=== PATIENT | female | born 1935 | race Caucasian/White ===

== ENCOUNTER → 2017-06-19 | Outpatient (CLI) | payer OTHER, MEDICARE ==
[~2017-06-19] MED LIST: ALLEGRA180 MG PO; APAP500 PO; ARTIFICIAL TEAR15 M1 OP; B-100 COMPLEX1 EAC1 PO; BACLOFEN; CALCIUM 500 WI1 EAC4 PO; CALCIUM 500+D1 EAC3 PO; COLACE100 MG PO; DETROL LA4 MG PO; FLONASE NS; FLUOXETINE HCL40 MG PO; FUROSEMIDE 20 M20 MG OR; K-DUR 20 MEQ T20 MEQ PO; MOM PO; MULTIVITAMINS PO; PROZAC PO; SINGULAIR 10 MG10 M1 PO; TIZANIDINE PO; TIZANIDINE4 MG/1 TA1 PO; ULTRAM PO; VITCB500GO PO; ZANAFLEX4 M1 PO; [UNRECOGNIZED DRUG - OTHER]
== END ==
LOC: HYPER 07:07
DX: L89.513 Pressure ulcer of right ankle, stage 3 (principal); L89.313 Pressure ulcer of right buttock, stage 3; L89.893 Pressure ulcer of other site, stage 3; L89.890 Pressure ulcer of other site, unstageable; I73.9 Peripheral vascular disease, unspecified; G81.10 Spastic hemiplegia affecting unspecified side; M81.0 Age-related osteoporosis without current pathological fracture; Z87.891 Personal history of nicotine dependence; Z72.89 Other problems related to lifestyle

== ENCOUNTER 2017-07-10 12:09 | Inpatient (IN) | payer OTHER, MEDICARE ==
[~2017-07-10] VITALS: Ht 170.2 cm; Wt 77.1 kg
--- NOTE | ~2017-07-10 | S ---
[facility] [place] [address] SURGICAL PATH RPT PROCEDURE Name: MARLEEN MCGEE Room #: 417-I ADM IN M.R.#: [id number] Admission: 07/10/17 Date of : 39 Discharge: Report #: [id number] Path Case #: [id number] PATHOLOGY REPORT COLLECTION DATE: 07/11/2017 RECEIVED DATE: 07/11/2017 SUBMITTING PHYS: Dr. Toney Swartz OTHER PHYS: Dr. Clarence Douglas SPECIMEN(S) RECEIVED: A.Right ischial tuberosity decubitus ulcer B.Right lateral maleolus pressure area * * * * * * * * * * * * FINAL DIAGNOSIS: A. Right ischial tuberosity decubitus ulcer: - Necrotic fibroadipose tissue with mixed inflammation and focal granulation tissue formation. - Skin with mild dermal chronic inflammation and focal hyperkeratosis. B. Right lateral maleolus pressure area: - Necrotic soft tissue with ulcer, granulation tissue formation, and mixed inflammation. - Skin with mild dermal chronic inflammation. PATHOLOGIST: Rex Coley M.D. REPORT ELECTRONICALLY SIGNED BY: Rex Coley M.D. DATE/TIME: 07/15/2017 10:56 * * * * * * * * * * * * GROSS PATHOLOGY: A. The specimen is received in formalin, labeled "Alma Delia Mcgee, right ischial tuberosity decubitus ulcer," and consists of 3 segments of eduardo-ravi and ulcerated skin with underlying soft tissue measuring between 4.2 x 3.5 x 2.8 cm and 3.3 x 2.3 x 1.4 cm. Coating Machine Operator sections are submitted in cassettes A1-A2. B. The specimen is received in formalin, labeled "Alma Delia Mcgee, right lateral malleolus pressure area," and consists of an ulcerated segment of brown-ravi skin measuring 2.5 x 2.4 x 0.5 cm. Coating Machine Operator sections are submitted in cassette B1. (SDY; 07/12/2017) CLINICAL HISTORY: Decubitus ulcer [facility] [address] [place] [address] SURGICAL PATH RPT PROCEDURE Name: MARLEEN MCGEE [facility] Room #: 417-I ADM IN M.R.#: [id number] Admission: 07/10/17 Date of : 39 Discharge: Report #: [id number] Path Case #: [id number] INITIAL CPT CODE(S): A; 66088 B; 58167 Professional services performed by [facility] at [address] , [place] [address] Technical services performed by [facility] at [address] [place] [address], [facility] [address] [address]. [facility] [address] [address] PHONE: [phone] DIRECTOR: Arcadio Gilbert M.D. * * * END OF REPORT * * *
--- NOTE | ~2017-07-10 | O ---
[facility] [place] [address] OPERATIVE REPORT Name: MARLEEN MCGEE Room #: 417-I ADM IN M.R.#: [id number] Admission: 07/10/17 Attend Phys: Roque Douglas MD Discharge: Date of : 37 Report #: [id number] THIS REPORT FOR: //name// CC: Clarence Douglas MD DATE OF SERVICE: 07/11/2017 SURGEON: Toney Swartz M.D. TELEVISION PICTURE TUBE REBUILDER: None. POSTOPERATIVE DIAGNOSES: 1. Unstageable right ischial tuberosity decubitus ulcer. 2. Right lateral malleolus decubitus ulcer. 3. Multiple scleroses. POSTOPERATIVE DIAGNOSES: 1. Stage 3 right ischial tuberosity decubitus ulcer. 2. Stage 3 right lateral malleolus decubitus ulcer. 3. Multiple scleroses. PROCEDURES: 1. Excisional debridement of skin, subcutaneous tissue and muscle of the right ischial tuberosity decubitus ulcer (starting measurements 2.5 x 2.5 cm and the ending measurement 5.5 x 6.5 cm). 2. Excisional debridement of skin and subcutaneous tissue of the right lateral malleolus decubitus ulcer (starting measurement 2.0 x 2.0 cm and ending measurement 3.5 cm x 3.3 cm). 3. Misonix ultrasonic debridement of right ischial tuberosity and right lateral malleolus decubitus ulcers. 4. Application of MIRODERM extracellular matrix to decubitus ulcer wound beds. ANESTHESIA: Monitored anesthetic care and local anesthetic. ESTIMATED BLOOD LOSS: 10 mL. SPECIMEN: Right ischial tuberosity skin, subcutaneous tissue, and muscle and right lateral malleolus skin and subcutaneous tissue. COMPLICATIONS: None appreciated. INDICATIONS FOR PROCEDURE: This is an 82-year-old female patient with a history of multiple scleroses who is essentially immobile. She had been seen [facility] by Dr. Vaughn Swan for decubitus ulcers. Attempted to [address] [address] OPERATIVE REPORT Name: MARLEEN MCGEE [facility] Room #: 417-I [facility] IN [facility].#: [id number] Admission: 07/10/17 Attend Phys: Roque Douglas MD Discharge: Date of : 37 Report #: [id number] debride her at the bedside; however, she had hemorrhage from a very small incision. In addition to this, there was concern for infection of both areas. Debridement of her decubitus ulcers is indicated. DESCRIPTION OF PROCEDURE IN DETAIL: After the risks, benefits and expectations of the operation were discussed in detail with the patient, informed consent was obtained. The patient was identified in the preoperative holding area. She has been receiving scheduled IV antibiotics. She was taken to the operating room and she was placed in the supine position. The SCDs were placed on the patient's left lower extremity and pneumatic compression was initiated. The patient was given sedation and monitored by Anesthesia. She was placed in the left lateral decubitus position with the right side up. Debridement of the right ischial tuberosity decubitus ulcer was undertaken first. The ischial tuberosity was prepped and draped in the standard sterile fashion. Local anesthetic was infiltrated into the skin and subcutaneous tissue around the ulcerated area. A sharp #10 blade scalpel was then used to make the incision. The underlying tissue was excised sharply down to healthy bleeding tissue. Dissection was carried more cephalad to get bleeding tissue and this required excision of more skin and subcutaneous tissue. Skin, subcutaneous tissue and muscle were removed with no removal of bone as there was no evidence for bony involvement. Cultures were taken to be sent for aerobes, anaerobes and fungus. The wound was then copiously irrigated. Areas of bleeding were made hemostatic with electrocautery. The Misonix ultrasonic debridement device was then used to mechanically and ultrasonically debride the wound bed. Bleeding points were again made hemostatic with electrocautery. After ensuring final hemostasis, the MIRODERM extracellular matrix was cut to size and approximated to the wound bed with simple interrupted 3-0 Vicryl sutures. There was good coverage of the wound. Excisional debridement of the right lateral malleolus was undertaken next in a similar fashion. Local anesthetic was infiltrated into the skin and subcutaneous tissue and a sharp #10 blade scalpel was used to make the incision. The wound bed was debrided sharply down to healthy bleeding tissue. There was no bony involvement. The excised tissue included skin and subcutaneous tissue as there was no overlying muscle in this area. The cultures were then taken to be sent for aerobes, anaerobes and fungus. The wound bed was made hemostatic with electrocautery. The ulcerative area was then irrigated with normal saline. The Misonix ultrasonic device was then used to mechanically debride the right lateral malleolus wound bed. Bleeding points were again made hemostatic with electrocautery. After ensuring final hemostasis, the MIRODERM extracellular matrix was cut to size and approximated to the wound bed with simple interrupted 3-0 Vicryl sutures. Each wound bed was then dressed with Adaptic, 4 x 4's and tape. The patient tolerated the procedure well. She was awakened and returned [address] [address] OPERATIVE REPORT Name: MARLEEN MCGEE Room #: 417-I ADM IN M.R.#: [id number] Admission: 07/10/17 Attend Phys: Roque Douglas MD Discharge: Date of : 37 Report #: [id number] to the supine position. She was taken to the recovery room in stable condition with no apparent intraoperative complications. <ELECTRONICALLY SIGNED> By: Toney Swartz MD, FACS 07/15/17 0658 [id number] 0147 Toney Swartz MD, FACS /nt
--- NOTE | ~2017-07-10 | HC ---
[facility] [place] [address] CONSULTATION Name: MARLEEN MCGEE Room #: 417-I ADM IN M.R.#: [id number] Admission: 07/10/17 Attend Phys: Roque Douglas MD Discharge: Date of : 37 Report #: [id number] THIS REPORT FOR: //name// CC: Clarence Douglas REASON FOR CONSULTATION: I was asked to evaluate concerning pressure wound infection. HISTORY OF PRESENT ILLNESS: The patient is an 82-year-old with underlying MS who presents with right ischial pressure wound infection, right lateral malleolus pressure wound infection and cellulitis to her right lower extremity. She also has multiple allergies recorded. She was a poor historian. She was seen in the [facility] with worsening erythema and enlarging ulcers involving these areas; therefore, was hospitalized for further treatment and debridement. She is just back from surgical debridement this afternoon. No fever, chills or sweats. Denies any cough or sputum production. She is very limited by her MS disease. ALLERGIES: AMOXICILLIN, SULFA, CEFTRIAXONE, CIPROFLOXACIN, VANCOMYCIN, MORPHINE AND ADHESIVE TAPE. SHE COULD NOT TELL ME THE REACTIONS OTHER THAN SHE HAD RASH WITH PENICILLIN. REPORT IN THE RECORD IS OF HIVES. SHE DENIED ANY RESPIRATORY COMPROMISE WITH THE DRUGS. MEDICATIONS: As noted on her MAR now including meropenem, which she seems to be tolerating. PAST MEDICAL HISTORY: MS with left abdominal wall infusion port, neurogenic bladder, depression, foot fracture, osteoarthritis and venous insufficiency. FAMILY HISTORY: Noncontributory. SOCIAL HISTORY: Nonsmoker and no significant alcohol intake. REVIEW OF SYSTEMS: As noted above. PHYSICAL EXAMINATION: VITAL SIGNS: Afebrile and hemodynamically stable. CHEST: Clear. HEART: Regular. ABDOMEN: Soft and nontender. Infusion pocket, left abdomen was unremarkable. EXTREMITIES: Right ischial and foot wounds were dressed and dry. She did have associated erythema involving her right lower extremity. Generalized weakness. LABORATORY STUDIES: Hemoglobin 11.6, WBC 6.7 and platelet count was 286,000. Sodium 140, potassium 3.9, bicarbonate 28 and creatinine 0.5. Blood cultures are pending. Wound cultures are pending. Arterial studies to the [facility] [address] [place] [address] CONSULTATION Name: MARLEEN MCGEE Room #: 417-I ADM IN [facility].#: [id number] Admission: 07/10/17 Attend Phys: Roque Douglas MD Discharge: Date of : 37 Report #: [id number] extremities are pending. IMPRESSION: An 82-year-old with MULTIPLE ALLERGIES INCLUDING BETA LACTAMS, VANCOMYCIN, SULFA AND CIPROFLOXACIN with infected pressure wounds involving her ischium and lateral malleolus on the right. I am awaiting operative report regarding possibility of underlying osteomyelitis. I would recommend broad-antibiotic coverage with meropenem as you have previously ordered. We will await operative note. Check arterial studies and obtain sedimentation rate. Continue wound care and we will adjust her antibiotics accordingly. Duration of her antibiotics will depend upon extent of her infection. <ELECTRONICALLY SIGNED> By: Kevin Saravia MD 07/12/17 1229 2032 0455 Kevin Saravia MD /nt
--- NOTE | ~2017-07-10 | HC ---
[facility] [place] [address] CONSULTATION Name: MARLEEN MCGEE Room #: 417-I ADM IN M.R.#: [id number] Admission: 07/10/17 Attend Phys: Roque Douglas MD Discharge: Date of : 37 Report #: [id number] THIS REPORT FOR: //name// CC: ARPAN Douglas DATE OF SERVICE: 07/11/2017 REASON FOR CONSULTATION: Decubitus ulcers. HISTORY OF PRESENT ILLNESS: This is an 82-year-old female patient with a history of multiple sclerosis who had been seen at the wound care clinic for decubitus ulcers. Bedside debridement was attempted; however, she had hemorrhage from a small incision. In addition to concern for infection of both areas, she has been admitted for further treatment and I have been asked to see her for excisional debridement. She denies fever or chills and reports pain with both areas. PAST MEDICAL HISTORY: Significant for multiple sclerosing, osteoarthritis, neurogenic bladder, depression, bilateral lower extremity venous insufficiency. PAST SURGICAL HISTORY: Right foot surgery. ALLERGIES: Multiple and include AMOXICILLIN, MORPHINE, PENICILLIN, SULFA DRUGS, VANCOMYCIN, CIPRO, CEFTRIAXONE and ADHESIVE TAPE. MEDICATIONS: At the [facility] include Detrol, Prozac, Lasix, K-Dur, Colace, tizanidine, milk of magnesia, Flonase, Dianna, Tylenol, multivitamins, baclofen, calcium and other p.r.n. medications. She is receiving meropenem here at the hospital for antibiosis. Please see the chart for dosing details. FAMILY HISTORY: Reviewed and noncontributory to this hospitalization. SOCIAL HISTORY: The [facility] is a [facility] resident. She does not use tobacco, alcohol or illicit drugs. REVIEW OF SYSTEMS: As per history of present illness. In addition: GENERAL: The patient denies fever or chills. Denies unintentional weight loss. HEENT: Denies changes in taste, vision, hearing, or smell. RESPIRATORY: Denies shortness of breath, COPD or asthma. CARDIOVASCULAR: Denies chest pain or palpitations. GASTROINTESTINAL: Denies abdominal pain, nausea or vomiting. GENITOURINARY: Denies dysuria, has a history of neurogenic bladder. [address] [address] CONSULTATION Name: MARLEEN MCGEE [facility] Room #: 417-I [facility] IN M.R.#: [id number] Admission: 07/10/17 Attend Phys: Roque Douglas MD Discharge: Date of : 37 Report #: [id number] NEUROLOGIC: Denies headaches, numbness or tingling. Has multiple sclerosis. PSYCHIATRIC: History of depression. Denies anxiety or suicidal ideations. SKIN AND INTEGUMENTARY: As per history of present illness. HEMATOLOGIC: Denies easy bleeding, bruising or anemia. ENDOCRINE: Denies polydipsia, polyuria, heat or cold intolerance. All other review of systems is negative. PHYSICAL EXAMINATION: VITAL SIGNS: Temperature 36.5 degrees Celsius, blood pressure 105/63, pulse 65, respirations 18. GENERAL: This is an 82-year-old female patient in no acute distress. She verbalizes, but is a poor historian. HEENT: Atraumatic, normocephalic. She has moist mucosal membranes, no scleral icterus. NECK: Supple, no appreciable lymphadenopathy. Trachea is midline. CHEST: Clear bilaterally. CARDIOVASCULAR: Regular rate and rhythm. ABDOMEN: Soft, nontender and nondistended. GENITOURINARY: Normal external female genitalia. EXTREMITIES: Her right lateral malleolus is dressed. A 1/4 to 1/2 dollar sized ulceration is present on the lateral malleolus with mild surrounding erythema and no significant drainage. Fibrinous exdate is present covering the wound with small areas of necrosis. RECTAL: Deferred; however, a right ischial decubitus ulcer is present, it is approximately 6 cm wide by 3-1/2 to 4 cm along with mild surrounding erythema and no significant edema, no significant drainage and fibrinous exudate. She has mild tenderness to palpation. NEUROLOGIC: Multiple sclerosis changes. PSYCHIATRIC: Flat affect. SKIN AND INTEGUMENTARY: See above. LABORATORY DATA: CBC from this morning shows a white blood cell count of 6.7, hemoglobin 11.6, hematocrit 33.9 and platelets 286. Electrolytes show sodium of 140, potassium 3.9, chloride 105, CO2 28, BUN 13, creatinine 0.5 and glucose 119. IMPRESSION AND PLAN: This is an 82-year-old female patient with a history of multiple sclerosis who favors her right side when lying supine. She has developed unstageable decubitus ulcers. We discussed the pathophysiology and natural history of these as well as treatment alternatives and surgical options. The patient would benefit from excisional debridement of both areas. I would plan to ultrasonically/mechanically debride as well and the patient was informed that cultures will be taken and all tissue will be sent for pathology. We discussed the risks, benefits, and expectations of the operation. She expressed understanding and wishes to proceed. She will be taken to the operating room at the next earliest availability for excisional debridement. [address] [address] CONSULTATION Name: MARLEEN MCGEE Room #: 417-I ADM IN M.R.#: [id number] Admission: 07/10/17 Attend Phys: Roque Douglas MD Discharge: Date of : 37 Report #: [id number] I sincerely appreciate the opportunity to participate in the care of this patient and will leave further recommendations and orders in the electronic medical record as appropriate. <ELECTRONICALLY SIGNED> By: Toney Swartz MD, FACS 07/12/17 0740 0824 0902 Toney Swartz MD, FACS /nt
[2017-07-10 15:16] VITALS: BP 131/87
[2017-07-10 16:33] LABS: HEMATOCRIT 34.2 % (37.0-47.0); HEMOGLOBIN 11.5 gm/dL (12.0-15.0); MCH 31.3 pg (26.0-34.0); MCHC 33.5 g/dL (28.0-37.0); MCV 93.4 fL (80.0-100.0); RBC 3.66 mil/uL (4.20-5.00); RDW 13.4 % (10.5-14.5); WBC 6.8 thou/uL (4.0-11.0)
[2017-07-10 16:42] LABS: CALCIUM 9.1 mg/dL (8.5-10.1); CREATININE 0.6 mg/dL (0.6-1.0); POTASSIUM 3.7 mmol/L (3.5-5.1)
[2017-07-10 19:16] VITALS: BP 132/63
[2017-07-10 19:20] VITALS: BP 98/57
[2017-07-11 03:59] VITALS: BP 105/63
[2017-07-11 06:31] LABS: HEMATOCRIT 33.9 % (37.0-47.0); HEMOGLOBIN 11.6 gm/dL (12.0-15.0); MCH 31.9 pg (26.0-34.0); MCHC 34.1 g/dL (28.0-37.0); MCV 93.4 fL (80.0-100.0); RBC 3.63 mil/uL (4.20-5.00); RDW 13.2 % (10.5-14.5); WBC 6.7 thou/uL (4.0-11.0)
[2017-07-11 06:47] LABS: CALCIUM 8.9 mg/dL (8.5-10.1); CREATININE 0.5 mg/dL (0.6-1.0); POTASSIUM 3.9 mmol/L (3.5-5.1)
[2017-07-11 08:00] VITALS: BP 150/76
[2017-07-11 12:32] VITALS: BP 138/74
[2017-07-11 15:52] VITALS: BP 124/69
[2017-07-11 20:55] VITALS: BP 113/50
[2017-07-12 04:06] VITALS: BP 140/63
[2017-07-12 06:18] LABS: HEMATOCRIT 31.6 % (37.0-47.0); HEMOGLOBIN 10.6 gm/dL (12.0-15.0); MCH 31.7 pg (26.0-34.0); MCHC 33.6 g/dL (28.0-37.0); MCV 94.4 fL (80.0-100.0); RBC 3.34 mil/uL (4.20-5.00); WBC 6.6 thou/uL (4.0-11.0)
[2017-07-12 06:30] LABS: CALCIUM 8.7 mg/dL (8.5-10.1); CREATININE 0.5 mg/dL (0.6-1.0); POTASSIUM 3.8 mmol/L (3.5-5.1)
[2017-07-12 07:11] VITALS: BP 130/64
[2017-07-12 09:29] VITALS: BP 118/49
[2017-07-12 16:45] VITALS: BP 137/65
[2017-07-12 19:29] VITALS: BP 118/49
[2017-07-13 02:55] VITALS: BP 101/41
[2017-07-13 06:01] LABS: HEMATOCRIT 30.5 % (37.0-47.0); HEMOGLOBIN 10.5 gm/dL (12.0-15.0); MCH 31.7 pg (26.0-34.0); MCHC 34.3 g/dL (28.0-37.0); MCV 92.4 fL (80.0-100.0); RBC 3.3 mil/uL (4.20-5.00); RDW 13.2 % (10.5-14.5); WBC 7.1 thou/uL (4.0-11.0)
[2017-07-13 06:08] LABS: CALCIUM 8.4 mg/dL (8.5-10.1); CREATININE 0.4 mg/dL (0.6-1.0); POTASSIUM 3.7 mmol/L (3.5-5.1)
[2017-07-13 07:30] VITALS: BP 131/63
[2017-07-13 15:56] VITALS: BP 122/66
[2017-07-13 19:49] VITALS: BP 108/54
[2017-07-14 03:54] VITALS: BP 105/38
[2017-07-14 06:28] LABS: HEMATOCRIT 32.1 % (37.0-47.0); MCH 31.8 pg (26.0-34.0); MCHC 34.3 g/dL (28.0-37.0); MCV 92.6 fL (80.0-100.0); RBC 3.47 mil/uL (4.20-5.00); RDW 13.2 % (10.5-14.5); WBC 7.3 thou/uL (4.0-11.0)
[2017-07-14 06:39] LABS: ALBUMIN 2.1 g/dL (3.4-5.0); CALCIUM 8.7 mg/dL (8.5-10.1); CREATININE 0.5 mg/dL (0.6-1.0); POTASSIUM 3.6 mmol/L (3.5-5.1); TOTAL BILIRUBIN 0.3 mg/dL (<0.1-1.0); TOTAL PROTEIN 6.1 g/dL (6.4-8.2)
[2017-07-14 07:08] VITALS: BP 123/44
[2017-07-14 14:23] VITALS: BP 97/44
[2017-07-14 21:30] VITALS: BP 131/66
[2017-07-15 04:30] VITALS: BP 94/62
[2017-07-15 08:00] VITALS: BP 133/55
[2017-07-15 15:10] VITALS: BP 103/43
[2017-07-15] MEDS ORDERED: INVANZ 1GM/NS 101 GM IV (17:10)
== END 2017-07-15 17:24 | DRG 570 ==
LOC: 4E 12:09
PROVIDERS: Hospitalist
DX: L89.893 Pressure ulcer of other site, stage 3 (principal); E43 Unspecified severe protein-calorie malnutrition; L03.115 Cellulitis of right lower limb; L89.513 Pressure ulcer of right ankle, stage 3; M19.90 Unspecified osteoarthritis, unspecified site; F32.9 Major depressive disorder, single episode, unspecified; G35 Multiple sclerosis; D64.9 Anemia, unspecified; Z88.1 Allergy status to other antibiotic agents; Z88.5 Allergy status to narcotic agent; Z88.0 Allergy status to penicillin; Z88.2 Allergy status to sulfonamides; Z88.8 Allergy status to other drugs, medicaments and biological substances; Z87.81 Personal history of (healed) traumatic fracture; Z68.26 Body mass index [BMI] 26.0-26.9, adult
CPT/HCPCS: 27000; 50010; 50101; 50386; 50403; 53353; 53354; 54109; 56524; 62110; 62900; 64031; 70005

== ENCOUNTER → 2017-07-10 | Outpatient (CLI) | payer OTHER, MEDICARE | LOC: HYPER 06:59 | DX: L89.313 Pressure ulcer of right buttock, stage 3 (principal); L89.513 Pressure ulcer of right ankle, stage 3; L89.893 Pressure ulcer of other site, stage 3; L89.890 Pressure ulcer of other site, unstageable; I73.9 Peripheral vascular disease, unspecified; G81.10 Spastic hemiplegia affecting unspecified side; G35 Multiple sclerosis; R60.9 Edema, unspecified; Z87.891 Personal history of nicotine dependence; Z72.89 Other problems related to lifestyle ==

== ENCOUNTER 2017-08-28 11:15 | Inpatient (IN) | payer OTHER, MEDICARE ==
[~2017-08-28] VITALS: Ht 170.2 cm; Wt 66.2 kg
--- NOTE | ~2017-08-28 | HC ---
[facility] [place] [address] CONSULTATION Name: MARLEEN MCGEE Room #: 448-P ADM IN M.R.#: [id number] Admission: 08/28/17 Attend Phys: Sanya Mcneil MD Discharge: Date of : 37 Report #: [id number] THIS REPORT FOR: //name// CC: Sanya Patel DATE OF SERVICE: 08/29/2017 WOUND CARE CONSULTATION PERSONAL PHYSICIAN: Clarence Chung MD CHIEF COMPLAINT: Right ischial decubitus ulcer as well as bilateral ankle ulcers. HISTORY OF PRESENT ILLNESS: This is an 82-year-old white female with a history of multiple sclerosis and is wheelchair rebound who is being followed in the wound clinic for the past several weeks and most recently by my PA at her nursing facility at [facility]. The wound has deteriorated now into a stage 4 right ischial decubitus ulcer and was infected this past week with morganella, proteus and E. coli. Given the multiple bacteria, Dr. Mueller agrees to see the patient in the senior's clinic yesterday. At that time, it was felt that given her multiple comorbidities and the need for a PICC line most likely as well as workup for underlying osteomyelitis, the patient was admitted to the hospital and I have been asked to follow her for the decubitus ulceration. The patient does complain of mild pain in that area. The patient had been recently started on ertapenem 1 gram IV daily approximately 4 days ago while she was at the nursing facility. This was based on her culture as above. CURRENT MEDICATIONS: Included the IV ertapenem as well as multiple other medications of which I have reviewed. PAST MEDICAL HISTORY: Multiple sclerosis with an abdominal wall, baclofen pump, neurogenic bladder, depression, the stage 4 decubitus ulcer in the right ischial region, multiple decubitus ulcers on the bilateral heels and then history of malnutrition. DRUG ALLERGIES: Multiple, I reviewed the patient's list. SOCIAL HISTORY: The patient resides at a snf. FAMILY HISTORY: Not pertinent to current medical condition. [facility] [address] [place] [address] CONSULTATION Name: MARLEEN MCGEE Room #: 448-P [facility] IN M.R.#: [id number] Admission: 08/28/17 Attend Phys: Sanya Mcneil MD Discharge: Date of : 37 Report #: [id number] REVIEW OF SYSTEMS: CONSTITUTIONAL: The patient denies actual fevers or chills prior to this hospitalization. NEUROLOGIC: The patient states she has significant debility and weakness overall, but no isolated weakness in her arms or legs except for progressive weakness in her lower extremity from her MS. EYES: No complaints. ENT: No complaints. RESPIRATORY: The patient denies shortness of breath, cough, wheezes. GASTROINTESTINAL: The patient has decreased appetite, but no nausea, vomiting or abdominal pain. GENITOURINARY: The patient denies urgency or frequency. PHYSICAL EXAMINATION: VITAL SIGNS: Temperature 37.2, pulse 74, respiration 18 and BP 120/61. GENERAL: This is awake and chronically ill appearing white female who is in ccyr-hm-kidljyvu distress secondary to pain. HEENT: Normocephalic and atraumatic. Mucous membranes are somewhat dry. Pupils are round. Sclerae white. NECK: Without JVD, masses or rigidity. BACK: Nontender. LUNGS: Clear. HEART: Regular with 2/6 systolic ejection murmur. ABDOMEN: Soft and nontender. EXTREMITIES: The patient has movement of the upper extremities, which is fairly free and very limited movement of lower extremities with some contractures. Evaluation of right ischial tuberosity reveals a stage 4 decubitus ulcer, which is a mix of slough and granulation tissue. There is palpable bone on the base. On the right lateral ankle, there is a stage 3 decubitus ulcer, with a mixture of slough and granulation tissue and on the right medial ankle there is an unstageable decubitus ulcer, which is 100% dry eschar and there is also an unstageable decubitus ulcer on the left lateral ankle, which is 100% eschar. NEUROLOGIC: Cranial nerves 2-12 are grossly intact. Motor and sensory are grossly intact. LABORATORY VALUES: White count 10.5 and hemoglobin 11.5. Sed rate 102. BUN 8, creatinine 0.5, C-reactive protein is 53, albumin 2.1 and prealbumin 15.1. WOUND CARE COURSE: I spoke at length with the patient. We will have a dietary consult to be performed for nutritional guidance. I think the patient also would do well with a PEG tube to enhance her nutritional protein supplementation as well as for healing. We will put a consult in for Dr. Ferguson to see the patient regarding surgical debridement of the decubitus ulcer as well as PEG tube placement for which the patient said she is agreeable to. We will put the patient on a low air loss mattress, have her turned every 2 hours. The ankle ulcers will be cleaned with saline daily and covered with Optifoam Ag, change [address] [address] CONSULTATION Name: MARLEEN MCGEE Room #: 448-P ADM IN M.R.#: [id number] Admission: 08/28/17 Attend Phys: Sanya Mcneil MD Discharge: Date of : 37 Report #: [id number] this Saturday, Saturday and Saturday. On the right ischial tuberosity, we will use 50% Dakin solution, cover with ABD and secure with tape, change this twice daily and we will continue to follow the patient. I will review this with the hospitalist as well as with the casework supervisor about starting discharge planning for either a SNF unit or possibly an LTAC, planning on whether the patient is going to need long-term IV antibiotics. IMPRESSION: 1. Stage 4 right ischial decubitus ulcer. 2. Stage 3 decubitus ulcer, right lateral ankle. 3. Unstageable decubitus ulcers, left lateral and right medial ankle. 4. Advanced MS with debility. 5. Protein-calorie malnutrition -- severe with an albumin of 2.1/ prealbumin of 15.1. PLAN: Described in length as above. I appreciate the ability to consult this patient. We will continue to follow her. By: 1156 17 Gilmer Almeida MD /nt
--- NOTE | ~2017-08-28 | HC ---
[facility] [place] [address] CONSULTATION Name: MARLEEN MCGEE Room #: 448-P ADM IN M.R.#: [id number] Admission: 08/28/17 Attend Phys: Sanya Mcneil MD Discharge: Date of : 39 Report #: [id number] THIS REPORT FOR: //name// CC: Sanya Denismo [facility] DATE OF SERVICE: 08/28/2017 INFECTIOUS DISEASE CONSULTATION HISTORY OF PRESENT ILLNESS: The patient is an 82-year-old white woman residing at [facility], referred for an Infectious Disease opinion by Dr. 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 This is a culture that was obtained on 08/20/2017. After [facility], the patient is referred to me and she is started on ertapenem 1 gram IV daily. The patient suffered with multiple sclerosis and she is wheelchair bound and unable to be traveling back and forth for the multiple procedures that she needs to address the issue of the decubitus ulceration. DRUG ALLERGIES: AMOXICILLIN, CEFTRIAXONE, CIPRO, MORPHINE SULFATE, PENICILLIN, ROCEPHIN, SULFONAMIDES AND VANCOMYCIN. MEDICATIONS: The patient is on treatment with ertapenem 1 gram IV daily since last week. She remains on treatment from the time of discharge from [facility] on current medications potassium chloride, docusate, furosemide, tolterodine tartrate, tizanidine, calcium carbonate, fluoxetine, tramadol, milk of magnesia, fluconazole, fexofenadine, p.r.n. acetaminophen, multivitamins, ascorbic acid and baclofen infusion pump on the left upper abdominal quadrant. PAST MEDICAL HISTORY: Multiple sclerosis with abdominal wall baclofen pump implantation. Neurogenic bladder. Depression. Osteoarthritis. Stage 4 right ischial decubitus, stage 2 right ankle and heel decubitus. Malnutrition. SOCIAL HISTORY: [facility]ides at a [facility]. She has a stepson and a sister. They do not live in town. REVIEW OF SYSTEMS: Profound debility. No nausea or vomiting. No fever. Some pain from the right ischial decubitus. PHYSICAL EXAMINATION: GENERAL: Elderly debilitated woman presenting following with vital signs. [facility] [address] [place] [address] CONSULTATION Name: MARLEEN MCGEE Room #: 448-P [facility] IN M.R.#: [id number] Admission: 08/28/17 Attend Phys: Sanya Mcneil MD Discharge: Date of : 39 Report #: [id number] VITAL SIGNS: BP 127/100, pulse 75, temperature 97.7 and saturation 92%. HEENT: Within range. NECK: Supple. BREAST EXAMINATION: Deferred. LUNGS: Clear. HEART: S1, S2. ABDOMEN: Wearing diapers. No masses or megaly. There is a baclofen pump in the left upper abdominal quadrant. BACK EXAMINATION: Reveals a stage 4 right ischial decubitus with necrotic tissue and purulence and the wound is packed. EXTREMITIES: No clubbing or cyanosis. NEUROLOGIC: Moving all extremities. LABORATORY DATA: At the [facility], the patient had culture of the right ischial decubitus that revealed moderate gamma Streptococcus, moderate E. coli, moderate Morganella morganii and moderate Proteus mirabilis. All these organisms are sensitive to meropenem. Prealbumin 7 mg per dL. ESR 23 mm per hour. C-reactive protein 20.2 mg per dL on 08/20/2017. ASSESSMENT: 1. Stage 4 right ischial decubitus with polymicrobial infection. 2. Multiple sclerosis with baclofen pump, left upper abdominal quadrant. 3. Severe malnutrition. SUGGESTIONS: Recommend hospitalization at [facility]. Continue ertapenem 1 gram IV daily or meropenem 500 mg IV every 8 hours. PICC line. Proceed with MRI scan of the pelvis to assess status of possible bone infection. The patient will benefit, if possible, with plastic surgical consultation for wound debridement and possible flap closure. Dr. Gilmer Almeida, thank you for requesting my suggestions in the care of your patient. <ELECTRONICALLY SIGNED> By: Taj Mueller MD 08/29/17 1021 [id number] Taj Mueller MD /nt
--- NOTE | ~2017-08-28 | HC ---
[facility] [place] [address] CONSULTATION Name: MARLEEN MCGEE Room #: 448-P ADM IN M.R.#: [id number] Admission: 08/28/17 Attend Phys: Sanya Mcneil MD Discharge: Date of : 39 Report #: [id number] THIS REPORT FOR: //name// CC: Sanya Denismo Marbindavid Patel REASON FOR CONSULTATION: I was asked to evaluate concerning nonhealing right ischial and right lateral malleolus wounds. HISTORY OF PRESENT ILLNESS: The patient is an 82-year-old with underlying MS who is basically bed bound. She does get up to a wheelchair. She developed a right ischial and right lateral malleolus ulcer, which was nonhealing. She was hospitalized on 07/11, where she underwent surgical debridement by Dr. Toney Swartz. Both wounds were debrided with no evidence of bony involvement intraoperatively. Cultures showed mixed skin avinash. She was treated with meropenem during her hospitalization, then switched [facility]. She had been receiving this medication, but on followup wound care evaluation, noted no healing to the tissues. No fever, chills, or sweats. No nausea, vomiting or diarrhea. She has a right upper extremity PICC. REVIEW OF SYSTEMS: Otherwise, noncontributory. Cultures obtained on 06/20/2017, from the wounds had revealed Morganella, Proteus and E. coli. I do not have the sensitivity reports on this yet. ALLERGIES: AMOXICILLIN, CEFTRIAXONE, CIPROFLOXACIN, MORPHINE, SULFA, and VANCOMYCIN. MEDICATIONS: As noted on her MAR including ertapenem. This was switched to Merrem after hospitalization last evening. Also, she is on fluconazole. PAST MEDICAL HISTORY, FAMILY HISTORY, AND SOCIAL HISTORY: Unchanged from her history and physical and that of my previous consultation several weeks ago. PHYSICAL EXAMINATION: VITAL SIGNS: Afebrile, hemodynamically stable. GENERAL: She is alert and cooperative and pleasant, in no acute distress. HEENT: Unremarkable. NECK: Supple. LUNGS: Clear. HEART: Regular. ABDOMEN: Soft and nontender. Baclofen pump pocket unremarkable. EXTREMITIES: Right ischial wound had moderate amount of drainage. There was no significant healing evident. Right lateral ankle wound without evidence of [address] [address] CONSULTATION Name: MARLEEN MCGEE CAT Room #: [facility]- ADM IN M.R.#: [id number] Admission: 08/28/17 Attend Phys: Sanya Mcneil MD Discharge: Date of : 39 Report #: [id number] healing. LABORATORY STUDIES: Sodium 137, potassium 3.9, creatinine 0.5. Hemoglobin 11.5, white count was 10.5, platelet count was 557,000. Sedimentation rate 102. CRP 52. IMPRESSION: An 82-year-old with advanced multiple sclerosis, now with nonhealing wounds and polymicrobial infection involving the ischium. Recommend continuing broad antibiotic coverage. We will obtain culture results. Await MRI scan and arterial studies. May need to consider further surgical intervention going forward. <ELECTRONICALLY SIGNED> By: Kevin Saravia MD 08/30/17 1208 [id number] Kevin Saravia MD /nt
[~2017-08-28 11:15] MED LIST changes: +INVANZ 1GM/NS 101 GM IV
[2017-08-28 16:39] VITALS: BP 112/60
[2017-08-28 17:41] LABS: EOSINOPHILS 2.5 % (0.0-3.0); HEMATOCRIT 34.2 % (37.0-47.0); HEMOGLOBIN 11.5 gm/dL (12.0-15.0); LYMPHOCYTES 11.8 % (24.0-44.0); MCH 29.8 pg (26.0-34.0); MCHC 33.7 g/dL (28.0-37.0); MCV 88.5 fL (80.0-100.0); MONOCYTES 9.2 % (1.0-8.0); PLATELET COUNT 557 thou/uL (150-400); POLYS 75.5 % (36.0-66.0); RBC 3.87 mil/uL (4.20-5.00); RDW 13.7 % (10.5-14.5); WBC 10.5 thou/uL (4.0-11.0)
[2017-08-28 17:42] LABS: MANUAL DIFF NO
[2017-08-28 17:51] LABS: CREATININE 0.5 mg/dL (0.6-1.0); POTASSIUM 3.9 mmol/L (3.5-5.1)
[2017-08-28 20:33] VITALS: BP 161/78
[2017-08-29 08:47] VITALS: BP 120/61
[2017-08-29 16:47] VITALS: BP 151/63
[2017-08-29 22:34] VITALS: BP 123/64
[2017-08-30 03:43] VITALS: BP 123/64
[2017-08-30 07:50] VITALS: BP 131/62
[2017-08-30] MEDS ORDERED: OXYCODONE HCL15 MG PO (12:02)
== END 2017-08-30 15:45 | DRG 539 ==
LOC: SEN 11:15 → 4S 15:47
PROVIDERS: Nurse Practitioner
PROC: 05H933Z Insertion of Infusion Device into Right Brachial Vein, Percutaneous Approach (ICD-10-PCS; principal; 2017-08-28)
DX: M86.9 Osteomyelitis, unspecified (principal); L89.154 Pressure ulcer of sacral region, stage 4; E43 Unspecified severe protein-calorie malnutrition; L89.513 Pressure ulcer of right ankle, stage 3; F32.9 Major depressive disorder, single episode, unspecified; M19.90 Unspecified osteoarthritis, unspecified site; G35 Multiple sclerosis; N31.9 Neuromuscular dysfunction of bladder, unspecified; L89.619 Pressure ulcer of right heel, unspecified stage; L89.629 Pressure ulcer of left heel, unspecified stage; I87.2 Venous insufficiency (chronic) (peripheral); Z88.5 Allergy status to narcotic agent; Z88.0 Allergy status to penicillin; Z88.1 Allergy status to other antibiotic agents; Z87.891 Personal history of nicotine dependence; Z68.22 Body mass index [BMI] 22.0-22.9, adult; Z88.2 Allergy status to sulfonamides; Z88.8 Allergy status to other drugs, medicaments and biological substances; Z99.3 Dependence on wheelchair
CPT/HCPCS: 10102; 27000